=== PATIENT | male | born 2000 | race Caucasian/White ===

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

== ENCOUNTER 2018-08-10 08:28 | Emergency (ER) | payer BC, OTHER ==
--- NOTE | 2018-08-10 09:00 | EDM.PDOC ---
ED HPI GENERAL MEDICAL PROBLEM - General Stated Complaint: FEVER,TONSIL PAIN Time Seen by Provider: 08/10/18 08:28 Source of Information: Reports: Patient, Family History Limitations: Reports: No Limitations - History of Present Illness INITIAL COMMENTS - FREE TEXT/NARRATIVE: 18 y.o.w.m came to the ED with his SO due to a sore throat, H/A and swelling of his ant. neck. Not devin worst H/A. Pt did not take any meds [employer]. Pain started this am. Pos sick contact. No N/V/D no dizziness or any other acute medical issues BP 146/92 RR 18 Pulse ox 99% on RA Pulse 95 Temp 37.3 Onset Date: 08/09/18 Onset Time: 18:00 Duration: Hour(s): Location: Reports: Face, Neck Quality: Reports: Burning, Dull Severity: Mild Improves with: Reports: Rest Worsens with: Reports: Eating Context: Reports: Sick Contact Associated Symptoms: Reports: No Other Symptoms Throat Pain Score (Numeric/FACES): 7 Headache Pain Score (Numeric/FACES): 7 - Related Data Allergies Allergy/AdvReac Type Severity Reaction Status Date / Time No Known Allergies Allergy Verified 08/10/18 08:44 Home Meds: Home Meds NK [No Known Home Meds] 09/29/16 [History] Past Medical History - Infectious Disease History Infectious Disease History: Reports: Chicken Pox - Past Surgical History Musculoskeletal Surgical History: Reports: Other (See Below) Other Musculoskeletal Surgeries/Procedures:: ankle surgury with plates Social & Family History - Caffeine Use Caffeine Use: Reports: Coffee ED ROS ENT - Review of Systems Review Of Systems: See Below Constitutional: Reports: No Symptoms HEENT: Reports: Throat Pain Respiratory: Reports: No Symptoms Cardiovascular: Reports: No Symptoms Endocrine: Reports: No Symptoms GI/Abdominal: Reports: No Symptoms : Reports: No Symptoms Musculoskeletal: Reports: No Symptoms Skin: Reports: No Symptoms Neurological: Reports: No Symptoms Psychiatric: Reports: No Symptoms Hematologic/Lymphatic: Reports: No Symptoms Immunologic: Reports: No Symptoms ED EXAM, ENT - Physical Exam Exam: See Below Exam Limited By: No Limitations General Appearance: Alert, WD/WN, Mild Distress Eye Exam: Bilateral Eye: Normal Inspection Ears: Normal External Exam Nose: Normal Inspection, Normal Mucousa, No Blood Mouth/Throat: Normal Gums, Normal Lips, Normal Teeth, Peritonsillar Mass, Pharyngeal Erythema Head: Atraumatic, Normocephalic Neck: Normal Inspection, Supple, Lymphadenopathy (R) Respiratory/Chest: No Respiratory Distress, Lungs Clear, Normal Breath Sounds, Chest Non-Tender Cardiovascular: Normal Peripheral Pulses, Regular Rate, Rhythm, No Edema, No Gallop GI/Abdominal: Normal Bowel Sounds, Soft, Non-Tender, No Organomegaly, No Abnormal Bruit, No Mass, Pelvis Stable (Male) Exam: Deferred Rectal (Males) Exam: Deferred Back: Normal Inspection, Full Range of Motion Extremities: Normal Inspection, Normal Range of Motion, Non-Tender, Normal Capillary Refill Neurological: Alert, Oriented, CN II-XII Intact Psychiatric: Normal Affect, Normal Mood Skin: Warm, Dry, Intact, Normal Color, No Rash Lymphatic: No Adenopathy Course - Vital Signs Text/Narrative:: 18 y.o.w.m came to the ED with his SO due to a sore throat, H/A and swelling of his ant. neck. Not devin worst H/A. Pt did not take any meds [employer]. Pain started this am. Pos sick contact. No N/V/D no dizziness or any other acute medical issues BP 146/92 RR 18 Pulse ox 99% on RA Pulse 95 Temp 37.3 PE: WNWD W M with a sore throat and LK swelling anterior neck Imaging: Lymph node swelling ant neck, possible reactive, official report is pending. Labs: CBC pos for Lymphocytes 12.4% Eagle # 1.4 and Neutros # 8.8. Eagle screen neg Impression: Pharyngitis/Tonsillitis viral, pending Cx Tx: Motrin Reexam: H/A subsided. throat pain improved Plan: D/C with instructions Last Recorded V/S: Last Vital Signs Temp 37.5 C 08/10/18 11:25 Pulse 86 08/10/18 11:25 Resp 18 08/10/18 11:25 BP 104/56 L 08/10/18 11:25 Pulse Ox 99 08/10/18 11:25 - Orders/Labs/Meds Orders: Active Orders 24 hr Category Date Time Status Soft Tissue Neck w Cont [CT] Stat Exams 08/10/18 09:56 Taken CULTURE STREP A CONFIRMATION [RM] Stat Lab 08/10/18 08:52 Results STREP SCRN A RAPID W CULT CONF [RM] Stat Lab 08/10/18 08:52 Results Labs: Laboratory Tests 08/10/18 08/10/18 08/10/18 Range/Units 09:34 09:34 09:34 WBC 11.8 (4.5-12.0) X10-3/uL RBC 5.19 (4.30-5.75) x10(6)uL Hgb 15.8 (13.5-17.8) g/dL Hct 45.3 (30.0-51.3) % MCV 87.2 (80-96) fL MCH 30.5 (27.7-33.6) pg MCHC 34.9 (32.2-35.4) g/dL RDW 12.0 (11.5-15.5) % Plt Count 189 (125-369) X10(3)uL MPV 9.2 (7.4-10.4) fL Neut % (Auto) 75.0 (46-82) % Lymph % (Auto) 12.4 L (13-37) % Eagle % (Auto) 11.6 (4-12) % Eos % (Auto) 0 L (1.0-5.0) % Baso % (Auto) 1 (0-2) % Neut # (Auto) 8.8 H (1.6-8.3) # Lymph # (Auto) 1.5 (0.6-5.0) # Eagle # (Auto) 1.4 H (0.0-1.3) # Eos # (Auto) 0.0 (0.0-0.8) # Baso # (Auto) 0.1 (0.0-0.2) # Sodium 138 (135-145) mmol/L Potassium 3.7 (3.5-5.3) mmol/L Chloride 99 L (100-110) mmol/L Carbon Dioxide 28 (21-32) mmol/L BUN 12 (7-18) mg/dL Creatinine 1.2 (0.70-1.30) mg/dL Est Cr Clr Drug Dosing 114.17 mL/min Estimated GFR (MDRD) > 60 (>60) BUN/Creatinine Ratio 10.0 (9-20) Glucose 95 (80-116) mg/dL Calcium 9.4 (8.6-10.2) mg/dL Monoscreen Negative (NEGATIVE) Meds: Medications Discontinued Medications Generic Name Dose Route Start Last Admin Trade Name Van PRN Reason Stop Dose Admin Ibuprofen 600 mg 08/10/18 11:18 08/10/18 11:28 Motrin PO 08/10/18 11:19 600 mg ONETIME ONE Administration Iopamidol 75 ml 08/10/18 10:09 08/10/18 10:30 Isovue-370 (76%) IV 08/10/18 10:10 75 ml ASDIRECTED ONE Administration Departure - Departure Time of Disposition: 11:18 Disposition: Home, Self-Care 01 Condition: Good Clinical Impression: Tonsillitis Pharyngitis Qualifiers: Pharyngitis/tonsillitis etiology: unspecified etiology Qualified Code(s): J02.9 - Acute pharyngitis, unspecified - Discharge Information Instructions: Ibuprofen tablets and capsules, Pharyngitis, [id number] Referrals: Hosea Sousa MD [Primary Care Provider] - Forms: ED Department Discharge Additional Instructions: Please avoid cold food/liquid, Motrin/Tylenol for pain or fever, please follow up with your regular MD as needed at clinic if not improving, come back if your symptoms get worse acutely - My Orders Last 24 Hours: My Active Orders 08/10/18 08:52 CULTURE STREP A CONFIRMATION [RM] Stat STREP SCRN A RAPID W CULT CONF [RM] Stat 08/10/18 09:56 Soft Tissue Neck w Cont [CT] Stat - Assessment/Plan Last 24 Hours: My Active Orders 08/10/18 08:52 CULTURE STREP A CONFIRMATION [RM] Stat STREP SCRN A RAPID W CULT CONF [RM] Stat 08/10/18 09:56 Soft Tissue Neck w Cont [CT] Stat
[2018-08-10] MEDS ORDERED: Iopamidol 755 Mg/ML 75 ML Bottle IV ONE (10:09)
[2018-08-10] MEDS ORDERED: Ibuprofen 600 MG Tab PO ONE (11:18)
[2018-08-10 11:35] VITALS: BP 104/56
== END 2018-08-10 11:29 | disposition home or self-care (01) ==
LOC: FB.ED 08:28
DX: J03.80 Acute tonsillitis due to other specified organisms (principal); B97.89 Other viral agents as the cause of diseases classified elsewhere
CPT/HCPCS: 36415; 70491; 80048; 85025; 86308; 87081; 87880; 99284; A9270; Q9967